=== PATIENT | female | born 1990 | race African-American/Black ===

== ENCOUNTER 2017-01-18 22:06 | Emergency (ER) | payer OTHER ==
[~2017-01-18] VITALS: Ht 167.6 cm; Wt 87.5 kg
[~2017-01-18 22:06] MED LIST: ALBU6.7H INH; BENZ100 PO; GUAI100S6 PO; VENTAER INH; ZITH250T PO
[2017-01-18 22:11] VITALS: BP 129/87; PULSE 116; RESP 20; TEMP 98.9; O2SAT 98
[2017-01-18] MEDS ORDERED: predniSONE 50 MG TAB PO ONE (22:30)
--- NOTE | 2017-01-18 22:41 | PD ---
HPI Chief Complaint: Cold / Flu Symptoms Time Seen by Provider: 22:21 Travel History International Travel<30 days: Yes Contact w/Intl Traveler<30days: Yes Name of Country Traveled to: [place] Traveled to known affect area: No History of Present Illness HPI Patient is a 26-year-old female comes in complaining of a cough for 4 days. She says that it started with cold symptoms, and the cough has progressively gotten worse. She reports having a fever of 102 on Tuesday. She denies any shortness of breath or chest pain. She says she is still very congested, and she is coughing a lot. 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 She has had asthma in the past and used an albuterol inhaler, but she does not feel like she needs that at this time. PFSH Past Medical History Asthma: Yes Cancer: No Diabetes: No Diminished Hearing: No Glaucoma: No Genitourinary: Yes (URETHRAL DIVERTICULUM) Hepatitis: No Hiatal Hernia: No Hypertension: No Respiratory: No Immunizations Current: No Thyroid Disease: No Tetanus Vaccination: Unknown Influenza Vaccination: No ?: Not LMP: 6--17 : 1 Para: 0 Miscarriage: 1 Past Surgical History Genitourinary Surgery: Yes (URETHRAL/VAGINAL CYST REMOVAL) Oral Surgery: Yes (WISDOM TEETH EXTRACTED) Other Surgery: Yes Social History Alcohol Use: Yes (RARE) Tobacco Use: No Substance Use: No Allergies-Medications (Allergen,Severity, Reaction): Coded Allergies: No Known Allergies (Verified , 01/18/17) Reported Meds & Prescriptions Reported Meds & Active Scripts Active Guaifenesin-Codeine Liq 100-10 Mg/5 Ml Soln 10 Ml PO Q6H PRN 5 Days Prednisone 50 Mg Tab 50 Mg PO DAILY 3 Days Zithromax Z-Grant (Azithromycin) 250 Mg Dspk 250 Mg PO DIRECTED 500 MG (2 tabs) day 1, then 1 tab days 2-5. Review of Systems Except as stated in HPI: all other systems reviewed are Neg General / Constitutional: Positive: Fever HENT: Positive: Congestion, No: Headaches, Lightheadedness, Sore Throat Cardiovascular: No: Chest Pain or Discomfort Respiratory: Positive: Cough, No: Shortness of Breath Gastrointestinal: No: Nausea, Vomiting Musculoskeletal: No: Myalgias, Edema Skin: No Rash, No Change in Pigmentation Neurologic: No: Weakness, Dizziness Physical Exam Narrative GENERAL: Awake and alert, in no acute distress. SKIN: Focused skin assessment warm/dry. HEAD: Atraumatic. Normocephalic. EYES: Pupils equal and round. No scleral icterus. ENT: Mucous membranes pink and moist. NECK: Trachea midline. No JVD. CARDIOVASCULAR: Regular rate and rhythm. No murmur appreciated. RESPIRATORY: No accessory muscle use. Clear to auscultation. Breath sounds equal bilaterally. MUSCULOSKELETAL: No obvious deformities. No clubbing. No cyanosis. No edema. NEUROLOGICAL: Awake and alert. No obvious cranial nerve deficits. Motor grossly within normal limits. Normal speech. PSYCHIATRIC: Appropriate mood and affect; insight and judgment normal. Data Data Last Documented VS Vital Signs Date Time Temp Pulse Resp B/P Pulse Ox O2 Delivery O2 Flow Rate FiO2 01/18/17 22:23 108 16 98 Room Air 01/18/17 22:11 98.9 129/87 Orders Chest, Pa & Lat (01/18/17 ) Prednisone (Deltasone) (01/18/17 22:30) Guaifen-Cod 200-20 Mg/10ml Liq (Robituss (01/18/17 22:45) MDM Medical Decision Making Medical Screen Exam Complete: Yes Emergency Medical Condition: Yes Medical Record Reviewed: Yes Differential Diagnosis Pneumonia versus bronchitis versus URI Narrative Course Patient is a 26-year-old female comes in complaining of severe cough. Exam shows patient is a lot of congestion, lungs are clear to auscultation. Chest x- ray obtained, shows no acute abnormalities.. Patient given a dose of prednisone and guaifenesin with codeine. She'll be discharged with prescriptions for azithromycin as well as a short course of steroids and cough medicine with codeine. She is advised to take a nasal decongestant. Advised to follow-up with a primary care doctor. Advised to return to the ED as needed for any worsening symptoms. Diagnosis Primary Impression: Bronchitis Patient Instructions: Acute Bronchitis (ED), General Instructions Additional Instructions: Take a nasal decongestant as needed for congestion. Take the steroids starting tomorrow. Use the cough medicine as needed. Be sure to finish all of the antibiotic. Follow-up with a primary care physician. Return to the emergency department as needed for any worsening symptoms. Scripts Guaifenesin-Codeine Liq 100-10 Mg/5 Ml Soln10 Ml PO Q6H PRN (COUGH) 5 Days Ref 0 Prov:Sejal Monzon MD 01/18/17 Prednisone 50 Mg Tab50 Mg PO DAILY 3 Days Ref 0 Prov:Sejal Monzon MD 01/18/17 Azithromycin (Zithromax Z-Grant)250 Mg Oxip311 Mg PO DIRECTED #1 DSPK Ref 0 500 MG (2 tabs) day 1, then 1 tab days 2-5. Prov:Sejal Monzon MD 01/18/17 Disposition: 01 DISCHARGE HOME Condition: Stable Sejal Monzon MD Jan 18, 2017 22:41
[2017-01-18] MEDS ORDERED: guaiFENesin/CODEINE SYRUP 200 MG/20 MG/10 ML CUP PO ONE (22:45)
[2017-01-18] MEDS ORDERED: ZITHTAB PO (22:57)
[2017-01-18] MEDS ORDERED: GUAI100S5 PO (22:57)
[2017-01-18] MEDS ORDERED: PRED50 PO (22:57)
--- NOTE | 2017-01-18 22:58 | RADHPO ---
EXAM DATE/TIME: 01/18/2017 22:43 [facility] COMPARISON: No previous studies available for comparison. INDICATIONS : Productive cough and congestion for four days. MEDICAL HISTORY : Bronchitis. SURGICAL HISTORY : None. ENCOUNTER: Initial ACUITY: 4 - 6 days PAIN SCORE: 3/10 LOCATION: Bilateral chest FINDINGS: PA and lateral views of the chest demonstrate the lungs to be symmetrically aerated without evidence of mass, infiltrate or effusion. The cardiomediastinal contours are unremarkable. Osseous structure s are intact. CONCLUSION: No acute disease. Mauri Garrett MD on January 18, 2017 at 22:55 Board Certified Radiologist. This report was verified electronically.
== END 2017-01-18 23:10 | disposition home or self-care (01) ==
LOC: PHED 22:06
DX: J40 Bronchitis, not specified as acute or chronic (principal)
CPT/HCPCS: 71020; 99284; J7512